=== PATIENT | male | born 1990 ===

== ENCOUNTER 2020-08-21 12:42 | Outpatient (REF) | payer OTHER, SELFPAY | END 2020-08-21 12:43 | disposition home or self-care (01) | LOC: HO.WFDLDS 12:42 | PROVIDERS: Visit Provider Internal Medicine | DX: Z20.828 Contact with and (suspected) exposure to other viral communicable diseases (principal) | CPT/HCPCS: 87635 ==

== ENCOUNTER 2020-08-24 08:55 | Outpatient (REF) | payer OTHER, SELFPAY | END 2020-08-24 08:56 | disposition home or self-care (01) | LOC: HO.LAB 08:55 | PROVIDERS: Visit Provider Nurse Practitioner Family | DX: Z20.828 Contact with and (suspected) exposure to other viral communicable diseases (principal) | CPT/HCPCS: 87071; 87635; 87880 ==

== ENCOUNTER 2020-10-18 10:51 | Outpatient (REF) | payer OTHER, SELFPAY | END 2020-10-18 10:52 | disposition home or self-care (01) | LOC: HO.WFDLDS 10:51 | PROVIDERS: Nurse Practitioner Family; Visit Provider Internal Medicine | DX: Z20.828 Contact with and (suspected) exposure to other viral communicable diseases (principal) | CPT/HCPCS: U0003 ==

== ENCOUNTER 2021-02-07 09:30 | Outpatient (REF) | payer OTHER, SELFPAY ==
--- NOTE | ~2021-02-07 | XR_ITS ---
EXAMINATION: XR FOOT, RIGHT CLINICAL INFORMATION: Right foot injury with pain COMPARISON: None TECHNIQUE: AP, lateral, and oblique views of the right foot. FINDINGS: There is a nondisplaced fracture seen involving the first proximal phalanx without dislocation. The fracture line may extend into the first interphalangeal joint space. Some dorsal soft tissue swelling is seen. XR/XR foot RT min 3V IMPRESSION: Nondisplaced fracture first proximal phalanx.
== END 2021-02-07 09:31 | disposition home or self-care (01) ==
LOC: HO.HMGCX 09:30
PROVIDERS: Visit Provider Nurse Practitioner Family
DX: S99.921A Unspecified injury of right foot, initial encounter (principal)
CPT/HCPCS: 73630

== ENCOUNTER 2021-02-22 07:17 | Outpatient (REF) | payer OTHER, SELFPAY ==
--- NOTE | ~2021-02-22 | XR_ITS ---
EXAMINATION: XR FOOT, RIGHT CLINICAL INFORMATION: S99.929A - Unspecified injury of unspecified foot, initia... COMPARISON: 02/07/2021 TECHNIQUE: AP, lateral, and oblique views of the right foot. FINDINGS: Again seen is a nondisplaced oblique fracture of the great toe proximal phalanx, likely extending into the IP joint. Subtle callus formation present at the medial cortex. Alignment is unchanged compared to prior. No new fractures are identified. Joint spaces are well-preserved. Bone mineralization is normal. Mild soft tissue swelling is improved. XR/XR foot RT min 3V IMPRESSION: Unchanged alignment of the nondisplaced great toe proximal phalangeal shaft fracture. Subtle callus formation suggests early changes of healing.
== END 2021-02-22 07:18 | disposition home or self-care (01) ==
LOC: HO.HOSX 07:17
PROVIDERS: Visit Provider Physician Assistant
DX: S92.919A Unspecified fracture of unspecified toe(s), initial encounter for closed fracture (principal); Y93.01 Activity, walking, marching and hiking; Y92.828 Other wilderness area as the place of occurrence of the external cause; Y99.9 Unspecified external cause status
CPT/HCPCS: 73630

== ENCOUNTER → 2022-12-30 13:38 | Outpatient (BNVA) | payer OTHER, SELFPAY | PROVIDERS: PCP Nurse Practitioner Family; Visit Provider Surgery | DX: L73.2 Hidradenitis suppurativa (principal) | CPT/HCPCS: 99202 ==

== ENCOUNTER 2023-01-24 09:00 | Day surgery (SDC) | payer OTHER, SELFPAY ==
[2023-01-17 19:32] VITALS: BMI 29.0
--- NOTE | 2023-01-23 09:42 | P.CONAN_ITS ---
Documented by User: Prisca Diaz NP 01/23/23 09:44 HPI - Anesthesia Eval Consult details Narrative: 32yo M for Right Excision Hidradenitis Thigh PMFSH Active Problems Active Problems: All Active Problems (Updated 12/30/22 @ 14:04 by Hudson Barnett MD) Hidradenitis suppurativa (Acute) Scalp lesion (Acute) Finger pain, right (Acute) Abscess (Acute) Physical exam (Acute) Puncture wound of right foot (Acute) Upper respiratory tract infection (Acute) Otitis externa (Acute) Fracture, toe (Acute) Injury of great toe (Acute) Nasal congestion (Acute) Otitis media (Acute) Blepharitis (Acute) Headache (Acute) Exposure to COVID-19 virus (Acute) Sorethroat (Acute) Past Medical History Medical History (Updated 12/30/22 @ 14:04 by Hudson Barnett MD) Hidradenitis suppurativa Family History Family History Paternal Aunt Skin cancer Paternal Uncle Skin cancer Social History Social History Housing: House Are you a primary urgent care physician assistant to a significant other at home: No Do you presently have visiting nurse or other home services: No Alcohol intake: current Alcohol intake frequency: does not drink Patient Tobacco Use Status: Former Tobacco user Tobacco use type: Cigarette Smoked in Last 30 Days: No e-Cigarette/Vaping Use: Never Used Use of substances other than those prescribed or required for medical reasons: No Have you been hit, kicked, punched, or otherwise hurt by someone within the past year? If so, by whom?: No Advance Directives: No Advance Directives Information Provided: Yes Recently lost weight without trying: No Eating poorly because of decreased appetite: No Nutrition Risks: No Nutritional Risk Poor oral hygiene: No service: No Current occupational status: employed Current occupation: Marketing. Cognitive needs: No Hearing needs: No Vision needs: No Meds Allergies Allergy/AdvReac Type Severity Reaction Status Date / Time No Known Allergies Allergy Verified 12/30/22 13:50 Home Medications Medication Instructions Recorded Confirmed Last Taken Type ibuprofen 200 mg capsule 600 mg PO Q6H 07/25/22 12/30/22 Unknown History ibuprofen 200 mg capsule 400 mg PO Q6H 09/09/22 12/30/22 Unknown History Exam Exam Date and Time: January 23, 2023 0942 Height,Weight and Vital Signs: Height 5 ft 7 in Weight 83.915 kg Assessment and Plan Assessment Anesthesia Assessment: Chart Reviewed Documented by User: Sergey Johnston MD 01/24/23 11:06 [facility] Past Medical History Medical History (Updated 12/30/22 @ 14:04 by Hudson Barnett MD) Hidradenitis suppurativa Family History Family History Paternal Aunt Skin cancer Paternal Uncle Skin cancer Family history of problems with anesthesia: No Surgical History History of Problems with Anesthesia: No Social History Social History Housing: House Are you a primary urgent care physician assistant to a significant other at home: No Do you presently have visiting nurse or other home services: No Alcohol intake: current Alcohol intake frequency: does not drink Patient Tobacco Use Status: Former Tobacco user Tobacco use type: Cigarette Smoked in Last 30 Days: No e-Cigarette/Vaping Use: Never Used Use of substances other than those prescribed or required for medical reasons: No Have you been hit, kicked, punched, or otherwise hurt by someone within the past year? If so, by whom?: No Advance Directives: No Advance Directives Information Provided: Yes Recently lost weight without trying: No Eating poorly because of decreased appetite: No Nutrition Risks: No Nutritional Risk Poor oral hygiene: No service: No Current occupational status: employed Current occupation: Marketing. Cognitive needs: No Hearing needs: No Vision needs: No Meds Allergies Allergy/AdvReac Type Severity Reaction Status Date / Time No Known Allergies Allergy Verified 12/30/22 13:50 Home Medications Medication Instructions Recorded Confirmed Last Taken Type ibuprofen 200 mg capsule 600 mg PO Q6H 07/25/22 12/30/22 Unknown History ibuprofen 200 mg capsule 400 mg PO Q6H 09/09/22 12/30/22 Unknown History Exam Airway Mallampati Class: II TM Dist: >3cm Neck ROM: Full Assessment and Plan Assessment Anesthesia Assessment: Anesthesia Plan Discussed Final Anesthetic Review Family History of Problems with Anesthesia: No History of Problems with Anesthesia: No NPO: Yes ASA Class: II Final Preanesthetic Review: No Changes in Pt Med Stat, Meds/Allgs Chart Reviewed, Consent Obtained/Reviewed and Anes Risks/Benef Reviewed Patient Risk: Low Procedure Risk: Low Anesthetic Plan Anesthetic Plan: GA Disposition: Standard PACU
[2023-01-24 09:32] VITALS: BP 134/83; PULSE 62; RESP 16; TEMP 36.3; O2SAT 99
[2023-01-24] MEDS: Lactated Ringers 1,000 ML 100 ML IVCONT (09:47)
--- NOTE | 2023-01-24 11:22 | MHC.SHP ---
Pre-Procedural Eval Section A Date of Service: 01/24/23 Section B Chief Complaint: Hidradenitis suppurativa Allergies: Allergies Allergy/AdvReac Type Severity Reaction Status Date / Time No Known Allergies Allergy Verified 12/30/22 13:50 Plan I have reviewed the history and physical and performed a pertinent physical examination on my patient. No changes have occurred unless specified. Time Spent With Patient Time: Total time managing care of this patient today ____ minutes.
--- NOTE | 2023-01-24 12:23 | P.OP_ITS ---
Operative Note Operative Note Date of Service: 01/24/23 Narrative: Preop diagnosis: Hidradenitis suppurativa, right medial thigh Postop diagnosis: The same Procedure: Excision of hidradenitis suppurativa, right medial thigh surgeon: Hudson Barnett MD hospital medical assistant: ANNETTE Jung The patient is a 32-year-old male with on wide area of induration, recurrent drainage and tenderness on the right medial thigh. This was suggestive of hidradenitis suppurativa. He understood the technique of excision under anesthesia. He was aware of the risks, benefits, and alternatives. He was brought to the operating room. He was placed supine with the right leg in an abducted position under general anesthesia via laryngeal mask airway. The area of induration was noted in the medial thigh on the right. this area was prepped and draped. Lidocaine 1% was used for local anesthesia. I made an elliptical incision around this area using blade 15. And this was carried down through the full-thickness of the skin and subcutaneous fat with electrocautery. I excised all indurated areas to ensure that we were remove all skin and subcutaneous tissue. The area of excision was about 5.5 cm long and 4 cm wide . Ensured hemostasis with electrocautery. I then reapposed deep subcutaneous layer with Dexon 3-0 interrupted sutures. Skin closure was achieved with nylon 3-0 simple interrupted sutures. Dressings were applied. The procedure was completed. The area was infiltrated with Marcaine 0.5% for postop JANET The patient tolerated the procedure well. There were no immediate complications. Initial and final counts of sponges and instruments were correct. Estimated blood loss about 20 cc The patient was extubated without difficulty and transferred to the recovery room with stable vital signs.
[2023-01-24 12:50] VITALS: BP 131/59; PULSE 65; RESP 16; TEMP 36.2; O2SAT 98
[2023-01-24 12:55] VITALS: BP 132/63; PULSE 62; RESP 14; O2SAT 98
[2023-01-24 13:00] VITALS: BP 150/75; PULSE 77; RESP 13; O2SAT 98
[2023-01-24 13:05] VITALS: BP 144/84; PULSE 78; RESP 16; O2SAT 97
[2023-01-24 13:20] VITALS: BP 148/84; PULSE 65; RESP 14; TEMP 36.6; O2SAT 98
== END 2023-01-24 13:45 | disposition home or self-care (01) ==
PROVIDERS: PCP Nurse Practitioner Family; Visit Provider Surgery
PROC: (CPT 11462; principal; 2023-01-24 11:00)
DX: L73.2 Hidradenitis suppurativa (principal); Z79.1 Long term (current) use of non-steroidal anti-inflammatories (NSAID); Z87.891 Personal history of nicotine dependence
CPT/HCPCS: 11462; 88304; 88305; J0131; J0690; J2795; J3010

== ENCOUNTER → 2023-02-06 15:03 | Outpatient (BNVA) | payer OTHER, SELFPAY | PROVIDERS: PCP Nurse Practitioner Family; Visit Provider Surgery | DX: L73.2 Hidradenitis suppurativa (principal) | CPT/HCPCS: 99212 ==

== ENCOUNTER 2023-12-08 13:49 | Outpatient (AMB) | payer OTHER, SELFPAY ==
[2023-12-08 13:56] VITALS: BP 160/92; PULSE 76; O2SAT 98; BMI 31.5
--- NOTE | 2023-12-08 13:56 | A.OFFPC_ITS ---
Vital Signs 12/08/23 13:56 12/08/23 14:28 Height 5 ft 7 in Weight 201 lb BMI 31.5 BP 160/92 H 148/90 H Blood Pressure Location Rt brachial Rt brachial Position Sitting Sitting Pulse 76 Pulse Source Pulse Oximeter Pulse Oximetry (%) 98 Oxygen Delivery Method Room Air Intake Visit Reasons: phy Intake Note: Pt is here for his Annual PE Allergies No Known Allergies Allergy (Verified 12/08/23 14:00) Tobacco use date assessed: 12/08/23 Dental Screening Dental Screen Date: 12/08/23 Did you have a dental visit in the last 12 months?: No Did you have a dental problem in the last 6 months where you did not have access to dental care?: No Was dental information given to patient?: Patient has dentist HPI phy HPI Details Pt is here for a PE. Will order labs. Pt's blood pressure is elevated today. Will start losartan 25mg. Will have pt monitor his blood pressure at home and drop off readings. Denies chest pain, shortness of breath, headache, dizziness, and blurred vision. Pt believes he may have ADD/ADHD. He also reports increased stress. Pt would like to see a psychiatrist. He is also interested in seeing a therapist. Will have team speak with pt. [facility] Medical History Hidradenitis suppurativa (01/24/23) Family History Paternal Aunt Skin cancer Paternal Uncle Skin cancer Social History Housing: House Are you a primary healthcare administrative assistant to a significant other at home: No Do you presently have visiting nurse or other home services: No Alcohol intake: current Alcohol intake frequency: does not drink Patient Tobacco Use Status: Current someday Tobacco user Tobacco use type: Cigarette Cigarettes Per Day: 1 e-Cigarette/Vaping Use: Never Used Second Hand Smoke Exposure: No service: No Current occupational status: employed Current occupation: Marketing. Cognitive needs: No Hearing needs: No Vision needs: No Questionnaire PHQ-9 Over the last 2 weeks, how often have you been bothered by any of the following problems? 1. Little interest or pleasure in doing things: several days 2. Feeling down, depressed, or hopeless: not at all 3. Trouble falling or staying asleep, or sleeping too much: not at all 4. Feeling tired or having little energy: not at all 5. Poor appetite or overeating: not at all 6. Feeling bad about yourself - or that you are a failure or have let yourself or your family down: several days 7. Trouble concentrating on things, such as reading the newspaper or watching television: nearly every day 8. Moving or speaking so slowly that other people could have noticed. Or the opposite - being so fidgety or restless that you have been moving around a lot more than usual: several days 9. Thoughts that you would be better off or of hurting yourself in some way: not at all Total score: 6 Depression Screening Interpretation: Negative Depression Screening Done: Yes 93047 - PHQ-9 Billing: Yes Source: Developed by Drs. Francisco Saldana, Angela Woods, Eliud Oquendo and colleagues, with an educational pierce from [employer]. Thrive Questionnaire Date Thrive assessed: 12/08/23 I am a: Patient What is your living situation today?: I have a steady place to live Within the past 12 months, did the food you bought not last and you didn't have the money to get more?: Never true Within the past 12 months, did you worry whether your food would run out before you got money to buy more?: Never true Do you have trouble paying for medicines?: No Do you have trouble getting transportation to medical appointments?: No Do you have trouble paying your heating and electricity bill?: Yes Do you have trouble taking care of your child, family member or friend?: No Do you have trouble with day-to-day activities such as bathing, preparing meals, shopping, managing finances, etc.?: No Are you currently unemployed and looking for a job?: No Are you interested in more education?: Yes THRIVE Score: 1 AUDIT C Alcohol Use Questionnaire (AUDIT-C) 1. How often do you have a drink containing alcohol?: Monthly or less 2. How many drinks containing alcohol do you have on a typical day when you are drinking?: 1 or 2 3. How often do you have six or more drinks on one occasion?: Never Total Score: 1 JOSE G-7 AMB Questionnaire JOSE G-7 Date JOSE G - 7 assessed: 12/08/23 Feeling nervous, anxious, or on edge: 1 = Several days Not being able to stop or control worryin = Not at all Worrying too much about different things: 1 = Several days Trouble relaxin = More than half the days Being so restless that it is hard to sit still: 2 = More than half the days Becoming easily annoyed or irritable: 1 = Several days Feeling afraid as if something awful might happen: 1 = Several days Total JOSE G-7 score (0-4 normal; 5-9 mild; 10-14 moderate; 15-21 severe): 8 Source: Developed by Drs. Francisco Saldana, Angela oWods, Eliud Oquendo and colleagues, with an educational pierce from [employer]. JOSE G-7 Assessment Billing JOSE G-7 Assessment Tool: JOSE G-7 Assessment 13949 Review of Systems Const Denies chills and Denies fever(s) Eyes Denies blurry vision ENT Denies vertigo, Denies dizziness and Denies sore throat Card Denies chest pain at rest, Denies chest pain with activity, Denies diaphoresis, Denies dyspnea and Denies dyspnea on exertion Resp Denies cough, Denies dyspnea, Denies dyspnea on exertion and Denies wheezing GI Denies abdominal pain, Denies melena, Denies hematochezia, Denies constipation, Denies diarrhea and Denies loose stools Denies hematuria Musc Denies numbness and Denies tingling Skin/Breast Denies lesions Neuro Denies vertigo, Denies dizziness, Denies numbness and Denies tingling Psych Denies anxiety, Denies depression, Denies homicidal ideation, Denies suicidal ideation and Denies other (substance abuse) Aller/Immun Denies wheezing Physical exam (Primary Care) Vital Signs: Last Vital Signs Pulse 76 12/08/23 13:56 BP 148/90 H 12/08/23 14:28 Pulse Ox 98 12/08/23 13:56 Oxygen Delivery Method Room Air 12/08/23 13:56 BMI result Body Mass Index 31.5 Tobacco/Smoking Status: Tobacco use Status Tobacco use date assessed 12/08/23 12/08/23 14:03 Patient Tobacco Use Status Current someday Tobacco 12/08/23 14:03 Tobacco use type Cigarette 12/08/23 13:56 e-Cigarette/Vaping Use Never Used 12/08/23 13:56 PHQ-9: PHQ-9 Score PHQ-9: Total score 6 12/08/23 14:28 Depression Screening Interpretation: Negative Thrive Assessment: Date of Thrive Assessment Date Thrive assessed 12/08/23 12/08/23 14:17 Const General: cooperative Nutritional Appearance: obese Orientation/consciousness: patient oriented x3 HENMT Head: Yes normal to inspection, Yes normocephalic and Yes atraumatic Ears: TM's normal bilaterally Eyes General: appearance normal, both eyes and all related structures Alignment and Position: alignment normal and position normal Neck Neck: Yes normal visual inspection and Yes no lymphadenopathy Thyroid: Thyroid normal Resp Effort & Inspection: normal respiratory effort Auscultation: clear to auscultation bilaterally Cardio Rate: regular rate Rhythm: regular rhythm Heart sounds: S1 normal heart sound present, S2 normal heart sound present and no murmurs GI Palpation (GI): Soft to palpation and nontender Auscultation: normal bowel sounds Male General Exam: Yes normal external exam Penis: normal penis Scrotum: scrotum normal, testes descended bilaterally and no inguinal hernias Testes: no testicular mass Skin Rashes: no rashes Neuro General: patient oriented x3, moves all extremities, no focal motor deficits and deep tendon reflexes 2+ bilaterally Romberg Test: Negative Psych Appearance: grossly normal Mental Status: mental status grossly normal Speech and movement: Normal speech and movement present Affect: normal affect Attitude: cooperative Thought process: Normal thought process present Thought content: Normal thought content present Insight: Good insight present (Psych) Judgement: Good judgement present (Psych) Assessment and Plan Assessment & Plan (1) Physical exam: Code(s): Z00.00 - Encounter for general adult medical examination without abnormal findings (2) HTN (hypertension): Code(s): I10 - Essential (primary) hypertension Plan: starting losartan, pt will drop off BPs in the near future, knows to get labs drawn after starting med Orders: Orders Comprehensive [place]. Panel Fast Today I10 - Essential (primary) hypertension, Z00.00 - Encounter for general adult medical examination without abnormal findings Lipid Panel Today I10 - Essential (primary) hypertension, Z00.00 - Encounter for general adult medical examination without abnormal findings Complete Blood Count Auto Diff Today I10 - Essential (primary) hypertension, Z00.00 - Encounter for general adult medical examination without abnormal findings TSH reflex Free T4 Today I10 - Essential (primary) hypertension, Z00.00 - Encounter for general adult medical examination without abnormal findings UA CC w/rflx Micro + Cult Today I10 - Essential (primary) hypertension, Z00.00 - Encounter for general adult medical examination without abnormal findings Medications: New losartan 25 mg PO DAILY 90 tabs 0RF 90 days Coding Level of Care Code Est Pt Prev Care 18-39y(26629) Diagnoses Physical exam Z00.00 HTN (hypertension) I10 Additional Codes JOSE G-7 Assessment Billing - JOSE G-7 Assessment Tool: JOSE G-7 Assessment [id number] ([id number])
[2023-12-08 14:28] VITALS: BP 148/90
== END 2023-12-08 15:36 | disposition home or self-care (01) ==
PROVIDERS: Visit Provider Nurse Practitioner Family
DX: Z00.00 Encounter for general adult medical examination without abnormal findings (principal); I10 Essential (primary) hypertension
CPT/HCPCS: 99395

== ENCOUNTER 2024-03-15 15:25 | Outpatient (AMB) | payer OTHER, SELFPAY ==
[2024-03-15 15:33] VITALS: BP 148/86; PULSE 87; O2SAT 98; BMI 30.6
--- NOTE | 2024-03-15 15:33 | MHC.PC.OV ---
Vital Signs 03/15/24 15:33 Height 5 ft 7 in Weight 195 lb 2 oz BMI 30.6 BP 148/86 H Blood Pressure Location Rt brachial Position Sitting Pulse 87 Pulse Source Pulse Oximeter Pulse Oximetry (%) 98 Oxygen Delivery Method Room Air Intake Visit Reasons: 3 Month follow up Allergies No Known Allergies Allergy (Verified 03/15/24 15:34) Medication List - Last Reconciled 03/15/24 by AKILAH Tipton atomoxetine 40 mg PO DAILY hydrochlorothiazide 12.5 mg PO DAILY losartan 25 mg PO DAILY 90 days Tobacco use date assessed: 03/15/24 Dental Screening Dental Screen Date: 03/15/24 Did you have a dental visit in the last 12 months?: Yes Did you have a dental problem in the last 6 months where you did not have access to dental care?: No Was dental information given to patient?: Patient has dentist HPI 3 Month follow up HPI Details HTN: Blood pressure is managed with losartan 25mg. Blood pressure is elevated today. Pt reports that it is in the 130s/90s at home. He reports starting his losartan approximately 1.5 weeks ago. Will add hydrochlorothiazide 12.5mg. Denies chest pain, shortness of breath, headache, dizziness, and blurred vision. Pt c/o constipation. He reports anal discomfort after a constipated BM, with intermittent bleeding. Spoke to him at extent about hemorrhoids and fissures, importance of diet, and medications. Recommended stool softener and miralax daily. Encouraged pt to increase fiber and water intake. Will cont to monitor [facility] Medical History Hidradenitis suppurativa (01/24/23) Family History Paternal Aunt Skin cancer Paternal Uncle Skin cancer Social History Housing: House Are you a primary progressive care unit registered nurse to a significant other at home: No Do you presently have visiting nurse or other home services: No Alcohol intake: current Alcohol intake frequency: does not drink Patient Tobacco Use Status: Current someday Tobacco user Tobacco use type: Cigarette Cigarettes Per Day: 1 e-Cigarette/Vaping Use: Never Used Second Hand Smoke Exposure: No service: No Current occupational status: employed Current occupation: Marketing. Cognitive needs: No Hearing needs: No Vision needs: No Questionnaire Thrive Questionnaire Date Thrive assessed: 12/08/23 AUDIT C Alcohol Use Questionnaire (AUDIT-C) 1. How often do you have a drink containing alcohol?: Monthly or less 2. How many drinks containing alcohol do you have on a typical day when you are drinking?: 1 or 2 3. How often do you have six or more drinks on one occasion?: Never Total Score: 1 Score Reviewed/Action Taken: Yes JOSE G-7 AMB Questionnaire JOSE G-7 Date JOSE G - 7 assessed: 12/08/23 Source: Developed by Drs. Francisco Saldana, Angela Woods, Eliud Oquendo and colleagues, with an educational pierce from [employer]. Review of Systems Const Reports as per HPI Physical exam (Primary Care) Vital Signs: Last Vital Signs Pulse 87 03/15/24 15:33 BP 148/86 H 03/15/24 15:33 Pulse Ox 98 03/15/24 15:33 Oxygen Delivery Method Room Air 03/15/24 15:33 BMI result Body Mass Index 30.6 Tobacco/Smoking Status: Tobacco use Status Tobacco use date assessed 03/15/24 03/15/24 15:37 Patient Tobacco Use Status Current someday Tobacco 03/15/24 15:37 Tobacco use type Cigarette 03/15/24 15:37 e-Cigarette/Vaping Use Never Used 03/15/24 15:37 Thrive Assessment: Date of Thrive Assessment Date Thrive assessed 12/08/23 03/15/24 15:37 Const General: cooperative Orientation/consciousness: patient oriented x3 Resp Effort & Inspection: normal respiratory effort Auscultation: clear to auscultation bilaterally Cardio Rate: regular rate Rhythm: regular rhythm Heart sounds: S1 normal heart sound present and S2 normal heart sound present GI Other: rectal exam: no external hemorrhoids, no masses or lesions, prostate palpable Neuro General: patient oriented x3 Psych Appearance: grossly normal Mental Status: mental status grossly normal Speech and movement: Normal speech and movement present Affect: normal affect Attitude: cooperative Thought process: Normal thought process present Thought content: Normal thought content present Insight: Good insight present (Psych) Judgement: Good judgement present (Psych) Assessment and Plan Assessment & Plan (1) HTN (hypertension): Code(s): I10 - Essential (primary) hypertension Plan: adding HCTZ (2) Constipation: Code(s): K59.00 - Constipation, unspecified Plan: adding miralax, stool softener, water, and fiber Plan The patient agreed to the use of a remote medical coder for this encounter. Scribed for AKILAH Truong by Bertha Diaz remote medical coder, on 03/15/2024 at 15:45 EST. Medications: New hydrochlorothiazide 12.5 mg PO DAILY 30 tabs 3RF Coding Level of Care Code Est Pt Level 3 (22468) Diagnoses HTN (hypertension) I10 Constipation K59.00
== END 2024-03-15 16:37 | disposition home or self-care (01) ==
PROVIDERS: PCP Nurse Practitioner Family; Visit Provider Nurse Practitioner Family
DX: I10 Essential (primary) hypertension (principal); K59.00 Constipation, unspecified
CPT/HCPCS: 99213

== ENCOUNTER 2024-03-20 06:37 | Outpatient (REF) | payer OTHER, SELFPAY ==
[2024-03-20 11:27] LABS: Basophils Absolute Auto 0.1 X10*3/uL (0.0-0.2); Basophils Percent Auto 0.7 % (0-2); Eosinophils Absolute Auto 0.3 X10*3/uL (0.0-0.4); Eosinophils Percent Auto 3.9 % (0-4); Hemoglobin 14.7 g/dl (14.0-18.0); Imm Gran Abs Auto 0.01 X10*3/uL (0.00-0.03); Imm Gran Pct Auto 0.1 % (0.0-0.4); Lymphocytes Percent Auto 26.6 % (20-40); MANUAL DIFF FLAG NO; Mean Corpuscular HGB Conc 33.4 g/dl (31.0-36.0); Mean Corpuscular Hemoglobin 28.8 pg (27.0-33.0); Mean Corpuscular Volume 86.1 fL (80.0-98.0); Mean Platelet Volume 11.1 fL (9.4-12.4); Monocytes Absolute Auto 0.8 X10*3/uL (0.1-1.2); Neutrophils Absolute Auto 4.4 x10*3/uL (2.0-8.3); Neutrophils Percent Auto 57.7 % (45-73); Platelet Count 238 X10*3/uL (160-400); Red Blood Count 5.11 X10*6/uL (4.60-5.80); Red Cell Distribution Width 12.5 % (11.0-16.0); White Blood Count 7.5 X10*3/uL (4.8-10.8)
[2024-03-20 11:40] LABS: Appearance Urine Clear; Color Urine Yellow; Glucose Urine UA Negative (Negative); Leukocyte Esterase Urine Negative (Negative); Nitrite Urine Negative (Negative); Specific Gravity - Urine 1.015 (1.005-1.025); Urine Blood Negative (Negative); Urine Ketones Negative (Negative); Urine Protein Negative (Neg-Trace)
[2024-03-20 12:17] LABS: Alanine Aminotransferase 15 U/L (0-40); Albumin Level 4.7 g/dL (3.5-5.0); Alkaline Phosphatase 65 U/L (39-117); Anion Gap 15 (12-20); Aspartate Amino Transferase 20 U/L (5-37); Bilirubin Total 0.5 mg/dL (0.0-1.0); Blood Urea Nitrogen 16 mg/dL (9-16); Calcium 9.6 mg/dL (8.4-10.2); Carbon Dioxide 25 mmol/L (22-29); Chloride 102 mmol/L (96-108); Cholesterol 175 mg/dL (<200); Estimated Glomerular Filt Rate > 60; Glucose Fasting 99 mg/dL (60-99); HDL Cholesterol 40 mg/dL (>40); LDL Cholesterol Calculated 113 mg/dL (<100); Potassium 3.8 mmol/L (3.3-5.1); Sodium 138 mmol/L (135-145); TSH reflex Free T4 1.61 uIU/mL (0.32-4.0); Triglycerides 114 mg/dL (<150)
== END 2024-03-20 06:38 | disposition home or self-care (01) ==
LOC: HO.HMGCLDS 06:37
PROVIDERS: PCP Nurse Practitioner Family; Visit Provider Nurse Practitioner Family
DX: Z00.00 Encounter for general adult medical examination without abnormal findings (principal); I10 Essential (primary) hypertension
CPT/HCPCS: 36415; 80053; 80061; 81003; 84443; 85025

== ENCOUNTER 2024-06-29 10:04 | Outpatient (AMB) | payer OTHER, SELFPAY ==
[2024-06-29 10:08] VITALS: BP 138/80; PULSE 55; O2SAT 98; BMI 29.9
--- NOTE | 2024-06-29 10:08 | A.OFFPC_ITS ---
Vital Signs 06/29/24 10:08 Height 5 ft 7 in Weight 191 lb BMI 29.9 BP 138/80 Blood Pressure Location Lt brachial Position Sitting Pulse 55 Pulse Source Pulse Oximeter Pulse Oximetry (%) 98 Oxygen Delivery Method Room Air Intake Visit Reasons: 3 Month follow up Intake Note: pt is here for 3 month follow up Soda Clerk Required: No Accompanied by: Self / Same As Patient Allergies No Known Allergies Allergy (Verified 06/29/24 10:10) Medication List - Last Reconciled 06/29/24 by AKILAH Tipton losartan-hydrochlorothiazide 50-12.5 mg 1 tab PO DAILY Tobacco use date assessed: 06/29/24 Dental Screening Dental Screen Date: 03/15/24 Did you have a dental visit in the last 12 months?: Yes Did you have a dental problem in the last 6 months where you did not have access to dental care?: No Was dental information given to patient?: Patient has dentist HPI 3 Month follow up HPI Details HTN: Pt reports that his blood pressure is elevated at home. He is currently taking hydrochlorothiazide 12.5mg and losartan 25mg. Will increase losartan to 50mg (switching to combo med). Denies shortness of breath, headache, dizziness, and blurred vision. Pt reports a recent episode of chest pain. Will do an EKG in office. denies any radicular symptoms or sustained discomfort [facility] Medical History Hidradenitis suppurativa (01/24/23) Family History Paternal Aunt Skin cancer Paternal Uncle Skin cancer Social History Housing: House Are you a primary point of care technician to a significant other at home: No Do you presently have visiting nurse or other home services: No Alcohol intake: current Alcohol intake frequency: does not drink Patient Tobacco Use Status: Current someday Tobacco user Tobacco use type: Cigarette Cigarettes Per Day: 1 e-Cigarette/Vaping Use: Never Used Second Hand Smoke Exposure: No service: No Current occupational status: employed Current occupation: Marketing. Cognitive needs: No Hearing needs: No Vision needs: No Questionnaire PHQ-9 Over the last 2 weeks, how often have you been bothered by any of the following problems? 1. Little interest or pleasure in doing things: not at all 2. Feeling down, depressed, or hopeless: not at all 3. Trouble falling or staying asleep, or sleeping too much: several days 4. Feeling tired or having little energy: several days 5. Poor appetite or overeating: several days 6. Feeling bad about yourself - or that you are a failure or have let yourself or your family down: several days 7. Trouble concentrating on things, such as reading the newspaper or watching television: not at all 8. Moving or speaking so slowly that other people could have noticed. Or the opposite - being so fidgety or restless that you have been moving around a lot more than usual: not at all 9. Thoughts that you would be better off or of hurting yourself in some way: not at all Total score: 4 Depression Screening Interpretation: Negative Depression Screening Done: Yes 90446 - PHQ-9 Billing: Yes Source: Developed by Drs. Francisco Saldana, Angela Woods, Eliud Oquendo and colleagues, with an educational pierce from [employer] ([email or web address]). Thrive Questionnaire Date Thrive assessed: 06/29/24 I am a: Patient What is your living situation today?: I have a steady place to live Within the past 12 months, did the food you bought not last and you didn't have the money to get more?: Never true Within the past 12 months, did you worry whether your food would run out before you got money to buy more?: I choose not to answer this question Do you have trouble paying for medicines?: I choose not to answer this question Do you have trouble getting transportation to medical appointments?: No Do you have trouble paying your heating and electricity bill?: Yes Do you have trouble taking care of your child, family member or friend?: No Do you have trouble with day-to-day activities such as bathing, preparing meals, shopping, managing finances, etc.?: No Are you currently unemployed and looking for a job?: No Are you interested in more education?: No Please select the resources that you would like help with: None Currently or been in a relationship where the following occur: No concerns reported THRIVE Score: 1 AUDIT C Alcohol Use Questionnaire (AUDIT-C) 1. How often do you have a drink containing alcohol?: 2-4 times a month 2. How many drinks containing alcohol do you have on a typical day when you are drinking?: 1 or 2 3. How often do you have six or more drinks on one occasion?: Never Total Score: 2 JOSE G-7 AMB Questionnaire JOSE G-7 Date JOSE G - 7 assessed: 06/29/24 Feeling nervous, anxious, or on edge: 1 = Several days Not being able to stop or control worryin = Not at all Worrying too much about different things: 0 = Not at all Trouble relaxin = Several days Being so restless that it is hard to sit still: 1 = Several days Becoming easily annoyed or irritable: 1 = Several days Feeling afraid as if something awful might happen: 0 = Not at all Total JOSE G-7 score (0-4 normal; 5-9 mild; 10-14 moderate; 15-21 severe): 4 Source: Developed by Drs. Francisco Saldana, Angela Woods, Eliud Oquendo and colleagues, with an educational pierce from [employer] ([email or web address]). JOSE G-7 Assessment Billing JOSE G-7 Assessment Tool: JOSE G-7 Assessment 22764 Review of Systems Const Reports as per HPI Physical exam (Primary Care) Vital Signs: Last Vital Signs Pulse 55 06/29/24 10:08 BP 138/80 06/29/24 10:08 Pulse Ox 98 06/29/24 10:08 Oxygen Delivery Method Room Air 06/29/24 10:08 BMI result Body Mass Index 29.9 Tobacco/Smoking Status: Tobacco use Status Tobacco use date assessed 06/29/24 06/29/24 10:14 Patient Tobacco Use Status Current someday Tobacco 06/29/24 10:11 Tobacco use type Cigarette 06/29/24 10:11 e-Cigarette/Vaping Use Never Used 06/29/24 10:11 Depression Screening Interpretation: Negative Thrive Assessment: Date of Thrive Assessment Date Thrive assessed 06/29/24 06/29/24 10:14 Currently or been in a relationship where the following occur: No concerns reported Const General: cooperative Orientation/consciousness: patient oriented x3 Resp Effort & Inspection: normal respiratory effort Auscultation: clear to auscultation bilaterally Cardio Rate: regular rate Rhythm: regular rhythm Heart sounds: S1 normal heart sound present and S2 normal heart sound present Neuro General: patient oriented x3 Extrem Right lower extremity: no edema Left lower extremity: no edema Psych Appearance: grossly normal Mental Status: mental status grossly normal Speech and movement: Normal speech and movement present Affect: normal affect Attitude: cooperative Thought process: Normal thought process present Thought content: Normal thought content present Insight: Good insight present (Psych) Judgement: Good judgement present (Psych) Assessment and Plan Assessment & Plan (1) Chest pain: Code(s): R07.9 - Chest pain, unspecified Plan: EKG done in office (2) HTN (hypertension): Code(s): I10 - Essential (primary) hypertension Plan: Increasing losartan from 25mg to 50mg (switching to combo med, hctz), will cont to monitor Plan The patient agreed to the use of a medical staff credentialing coordinator for this encounter. Scribed for ROSA Truong-KATHLEEN by Bertha Diaz medical staff credentialing coordinator, on 06/29/2024 at 10:35 EST. Orders: Orders AMB EKG-In Office Today R07.9 - Chest pain, unspecified Comprehensive Met. Panel Today I10 - Essential (primary) hypertension, R07.9 - Chest pain, unspecified Medications: New losartan-hydrochlorothiazide 50-12.5 mg 1 tab PO DAILY 90 tabs 0RF Discontinued hydrochlorothiazide Discontinued Reason: Duplicate 12.5 mg PO DAILY 30 tabs 3RF losartan Discontinued Reason: Doctor's Order 25 mg PO DAILY 90 days 90 tabs 0RF Coding Level of Care Code Est Pt Level 3 (69707) Diagnoses Chest pain R07.9 HTN (hypertension) I10 Additional Codes JOSE G-7 Assessment Billing - JOSE G-7 Assessment Tool: JOSE G-7 Assessment 59251 ([id number])
== END 2024-06-29 11:10 | disposition home or self-care (01) ==
PROVIDERS: PCP Nurse Practitioner Family; Visit Provider Nurse Practitioner Family
DX: R07.9 Chest pain, unspecified (principal); I10 Essential (primary) hypertension
CPT/HCPCS: 93000; 99213

== ENCOUNTER 2024-10-19 16:09 | Outpatient (AMB) | payer OTHER, SELFPAY ==
--- NOTE | 2024-10-19 16:15 | A.OFFPC_ITS ---
Vital Signs 10/19/24 16:16 10/19/24 16:46 Height 5 ft 7 in Weight 190 lb BMI 29.8 BP 136/80 128/80 Blood Pressure Location Rt brachial Lt brachial Position Sitting Sitting Pulse 64 Pulse Source Pulse Oximeter Pulse Oximetry (%) 98 Intake Visit Reasons: 4 month follow up Allergies No Known Allergies Allergy (Verified 10/19/24 16:16) Medication List - Last Reconciled 10/19/24 by Keenan Sosa [facility] losartan-hydrochlorothiazide 50-12.5 mg 1 tab PO DAILY Tobacco use date assessed: 06/29/24 Dental Screening Dental Screen Date: 03/15/24 HPI 4 month follow up HPI Details Chief Complaint I am here for hypertension and to discuss treatment options for ADHD. History of Present Illness The patient is a 33-year-old male presenting with essential hypertension and ADHD. The patient has been on a losartan and hydrochlorothiazide combination for hypertension but has not been diligent in monitoring blood pressure at home. Blood pressure readings have fluctuated, with recent clinic measurements showing blood pressure at 128/80 mmHg after initially higher readings. Additionally, the patient discussed a history of ADHD, initially investigated with medication which he found ineffective, leading to discontinuation. The patient mentioned they have not engaged in recent diagnostic evaluations for ADHD, which he was told to do by a psych provider. If +, recommend starting a NONstimulant before any stimulant medication. Swelling in the lower extremities was considered when the patient wore new shoes, but this was not a persistent problem. The patient does not report cardiac or respiratory issues, and no other major health changes or stressors were noted. Social History - The patient is employed, though detail s of current job roles were not specified. - Family status includes being a and father of two. - The patient reports relatively sedenta ry lifestyle with references to sitting for much of the day. - No specific mention of exercise, dieta ry habits, or substance use. Health Maintenance - Recommended regular blood pressure mon itoring at home. - A physical examination is scheduled december. Review of Systems - Cardiovascular: denies any cp, SOB, N/ V, BELLO, dizziness, blurred vision - Neurological: Reports memory issues, d ifficulty focusing, consistent with ADHD. denies any si or hi Physical Exam General: Cooperative, healthy appearing, comfortable, no acute distress and well developed Orientation: Patient oriented x3 Limitations: No limitations Head: Normal to inspection Ears: Hearing grossly normal bilaterally Nose: Normal external nose present Face and sinus: Normal facial exam Eyes: Appearance normal, both eyes and all related structures Neck: Normal visual inspection and Yes full ROM Respiratory: Normal respiratory effort and able to speak in complete sentences. Clear to auscultation bilaterally Cardiovascular: Regular rate and rhythm. Normal S1 and S2 GI: Normal to inspection. Soft to palpation and nontender Skin: No rashes or lesions noted Neuro: Patient oriented x3 Extremities: Normal to inspection, no edema Results Plan - Encourage routine home blood pressure monitoring and reporting through the portal. - Discussed non-stimulant medication opt ions such as Wellbutrin SR for ADHD; awaiting further diagnostic confirmation via online testing. - Will order additional labs for monitor ing hypertension and general health status. - Encouraged continued use of current hy pertension medication. - Advise follow-up in six months for upd ates and medication efficacy review compatible with patient schedule and lifestyle. Patient was informed and verbally consented to the use of an ambient scribe for clinic note documentation during this visit. Discussion Notes During today's visit, we discussed the importance of regularly monitoring blood pressure at home. Emphasis was placed on using the portal for efficient communication of readings. I addressed concerns regarding ADHD management, explaining options beyond stimulants, specifically Wellbutrin SR, and recommended necessary diagnostic steps. We agreed on a strategy to explore this route prior to considering stimulant medications. I confirmed the scheduled December examination and clarified the procedures for lab work completion prior to that appointment. Encouragement was given to maintain regular medication compliance and preparation for subsequent evaluations. Patient Instructions - Monitor and record blood pressure at h ome weekly using a reliable monitor. - Submit blood pressure readings through the portal every few months. - Schedule and complete lab tests as ear ly as possible prior to the December appointment. - Consider having the ADHD diagnostic te st online for medication eligibility. - Maintain adherence to prescribed hyper tension medication. - Attend the scheduled exam in December and bring recorded blood pressure data. [facility] Medical History Hidradenitis suppurativa (01/24/23) Surgical History H/O removal of cyst Family History Paternal Aunt Skin cancer Paternal Uncle Skin cancer Social History Housing: House Are you a primary customer care specialist to a significant other at home: No Do you presently have visiting nurse or other home services: No Alcohol intake: current Alcohol intake frequency: does not drink Patient Tobacco Use Status: Current someday Tobacco user Tobacco use type: Cigarette Cigarettes Per Day: 1 e-Cigarette/Vaping Use: Never Used Second Hand Smoke Exposure: No service: No Current occupational status: employed Current occupation: Marketing. Cognitive needs: No Hearing needs: No Vision needs: No Questionnaire Thrive Questionnaire Date Thrive assessed: 06/29/24 I am a: Patient What is your living situation today?: I have a steady place to live Within the past 12 months, did the food you bought not last and you didn't have the money to get more?: Never true Within the past 12 months, did you worry whether your food would run out before you got money to buy more?: I choose not to answer this question Do you have trouble paying for medicines?: I choose not to answer this question Do you have trouble getting transportation to medical appointments?: No Do you have trouble paying your heating and electricity bill?: Yes Do you have trouble taking care of your child, family member or friend?: No Do you have trouble with day-to-day activities such as bathing, preparing meals, shopping, managing finances, etc.?: No Are you currently unemployed and looking for a job?: No Are you interested in more education?: No Please select the resources that you would like help with: None Currently or been in a relationship where the following occur: No concerns reported THRIVE Score: 1 JOSE G-7 AMB Questionnaire JOSE G-7 Date JOSE G - 7 assessed: 06/29/24 Source: Developed by Drs. Francisco Saldana, Angela Woods, Eliud Oquendo and colleagues, with an educational pierce from [employer]. Physical exam (Primary Care) Vital Signs: Last Vital Signs Pulse 64 10/19/24 16:16 BP 136/80 10/19/24 16:16 Pulse Ox 98 10/19/24 16:16 BMI result Body Mass Index 29.8 Tobacco/Smoking Status: Tobacco use Status Tobacco use date assessed 06/29/24 10/19/24 16:15 Patient Tobacco Use Status Current someday Tobacco 10/19/24 16:15 Tobacco use type Cigarette 10/19/24 16:15 e-Cigarette/Vaping Use Never Used 10/19/24 16:15 Thrive Assessment: Date of Thrive Assessment Date Thrive assessed 06/29/24 10/19/24 16:15 Currently or been in a relationship where the following occur: No concerns reported Coding Level of Care Code Est Pt Level 3 (58370) Diagnoses HTN (hypertension) I10 ADD (attention deficit disorder) F98.8 Assessment & Plan Assessment & Plan (1) HTN (hypertension): Code(s): I10 - Essential (primary) hypertension Category: Medical (2) ADD (attention deficit disorder): Code(s): F98.8 - Other specified behavioral and emotional disorders with onset usually occurring in childhood and adolescence Category: Medical Plan . Orders: Orders TSH reflex Free T4 Today I10 - Essential (primary) hypertension Lipid Panel Today I10 - Essential (primary) hypertension Complete Blood Count Auto Diff Today I10 - Essential (primary) hypertension Comprehensive [place]. Panel Fast Today I10 - Essential (primary) hypertension UA CC w/rflx Micro + Cult Today I10 - Essential (primary) hypertension
[2024-10-19 16:16] VITALS: BP 136/80; PULSE 64; O2SAT 98; BMI 29.8
[2024-10-19 16:46] VITALS: BP 128/80
== END 2024-10-19 16:50 | disposition home or self-care (01) ==
PROVIDERS: PCP Nurse Practitioner Family; Visit Provider Nurse Practitioner Family
DX: I10 Essential (primary) hypertension (principal); F98.8 Other specified behavioral and emotional disorders with onset usually occurring in childhood and adolescence

== ENCOUNTER → 2024-10-19 16:09 | Outpatient (BNVA) | payer OTHER, SELFPAY | PROVIDERS: PCP Nurse Practitioner Family; Visit Provider Nurse Practitioner Family | DX: I10 Essential (primary) hypertension (principal); F98.8 Other specified behavioral and emotional disorders with onset usually occurring in childhood and adolescence | CPT/HCPCS: 99212 ==

== ENCOUNTER 2025-04-20 10:18 | Outpatient (AMB) | payer OTHER, SELFPAY ==
[2025-04-20 10:20] VITALS: BP 130/80; PULSE 67; O2SAT 98; BMI 30.2
--- NOTE | 2025-04-20 10:20 | A.OFFPC_ITS ---
Vital Signs 04/20/25 10:20 Height 5 ft 7 in Weight 193 lb BMI 30.2 BP 130/80 Blood Pressure Location Rt brachial Position Sitting Pulse 67 Pulse Source Pulse Oximeter Pulse Oximetry (%) 98 Oxygen Delivery Method Room Air Intake Visit Reasons: 6 month follow up-SEE OA PCP not listed on ins. Outbound Call Center Representative Required: No Accompanied by: Self / Same As Patient Allergies No Known Allergies Allergy (Verified 04/20/25 10:20) Medication List - Last Reconciled 04/20/25 by AKILAH Tipton losartan-hydrochlorothiazide 50-12.5 mg 1 tab PO DAILY Tobacco use date assessed: 04/20/25 Dental Screening Dental Screen Date: 04/20/25 Did you have a dental visit in the last 12 months?: Yes Did you have a dental problem in the last 6 months where you did not have access to dental care?: No Was dental information given to patient?: Patient has dentist HPI 6 month follow up-SEE OA PCP not listed on ins. HPI Details Chief Complaint The patient reports foot pain and concerns about blood pressure management. History of Present Illness The patient is a 34-year-old male presenting with foot pain and hypertension management. The patient reports stable blood pressure readings at home, ranging from 120 to 130 mmHg systolically. He denies experiencing any chest pain, dyspnea, blurred vision, or headaches. Regarding his foot pain, the patient describes tenderness in the balls of his feet bilaterally, with significant calluses noted, particularly on the plantar aspect of the first metatarsophalangeal joint regions bilaterally. He has attempted callus removal at home, which has provided some relief. He has been advised to obtain better footwear to alleviate symptoms. Social History Health Maintenance Review of Systems - Cardiovascular: Denies chest pain, dys pnea, or syncope. - Neurological: Denies blurred vision or headaches. - Gastrointestinal: Denies nausea or vom iting. Physical Exam General: Cooperative, healthy appearing, comfortable, no acute distress and well developed Orientation: Patient oriented x3 Limitations: No limitations Head: Normal to inspection Ears: Hearing grossly normal bilaterally Nose: Normal external nose present Face and sinus: Normal facial exam Eyes: Appearance normal, both eyes and all related structures Neck: Normal visual inspection and Yes full ROM Respiratory: Normal respiratory effort and able to speak in complete sentences. Clear to auscultation bilaterally Cardiovascular: Regular rate and rhythm. Normal S1 and S2 GI: Normal to inspection. Soft to palpation and nontender Skin: No rashes or lesions noted Neuro: Patient oriented x3 Extremities: Tenderness to the balls of the feet bilaterally. Calluses especially just inferior to the fifth and first toes plantar aspect on the first MTP joint regions bilaterally. Results Plan The patient is advised to continue monitoring his blood pressure at home, ensuring it remains within the target range. For the foot pain, he is recommended to use appropriate footwear to reduce pressure on the calluses and consider professional podiatric care if symptoms persist. encouraged to get labs drawn [facility] Medical History Hidradenitis suppurativa (01/24/23) Surgical History H/O removal of cyst Family History Paternal Aunt Skin cancer Paternal Uncle Skin cancer Social History Housing: House Are you a primary care center manager to a significant other at home: No Do you presently have visiting nurse or other home services: No Alcohol intake: current Alcohol intake frequency: does not drink Patient Tobacco Use Status: Current someday Tobacco user Tobacco use type: Cigarette Cigarettes Per Day: 1 e-Cigarette/Vaping Use: Never Used Second Hand Smoke Exposure: No service: No Current occupational status: employed Current occupation: Marketing. Cognitive needs: No Hearing needs: No Vision needs: No Questionnaire PHQ-9 Over the last 2 weeks, how often have you been bothered by any of the following problems? 1. Little interest or pleasure in doing things: not at all 2. Feeling down, depressed, or hopeless: not at all 3. Trouble falling or staying asleep, or sleeping too much: not at all 4. Feeling tired or having little energy: not at all 5. Poor appetite or overeating: not at all 6. Feeling bad about yourself - or that you are a failure or have let yourself or your family down: not at all 7. Trouble concentrating on things, such as reading the newspaper or watching television: not at all 8. Moving or speaking so slowly that other people could have noticed. Or the opposite - being so fidgety or restless that you have been moving around a lot more than usual: not at all 9. Thoughts that you would be better off or of hurting yourself in some way: not at all Total score: 0 Depression Screening Interpretation: Negative Depression Screening Done: Yes 10833 - PHQ-9 Billing: Yes Source: Developed by Drs. Francisco Saldana, Angela Woods, Eliud Oquendo and colleagues, with an educational pierce from [employer]. Thrive Questionnaire Date Thrive assessed: 04/20/25 I am a: Patient What is your living situation today?: I have a steady place to live Within the past 12 months, did the food you bought not last and you didn't have the money to get more?: Never true Within the past 12 months, did you worry whether your food would run out before you got money to buy more?: Never true Do you have trouble paying for medicines?: I choose not to answer this question Do you have trouble getting transportation to medical appointments?: I choose not to answer this question Do you have trouble paying your heating and electricity bill?: I choose not to answer this question Do you have trouble taking care of your child, family member or friend?: No Do you have trouble with day-to-day activities such as bathing, preparing meals, shopping, managing finances, etc.?: No Are you currently unemployed and looking for a job?: No Are you interested in more education?: I choose not to answer this question Please select the resources that you would like help with: None Currently or been in a relationship where the following occur: No concerns reported THRIVE Score: 0 AUDIT C Alcohol Use Questionnaire (AUDIT-C) 1. How often do you have a drink containing alcohol?: 2-4 times a month 2. How many drinks containing alcohol do you have on a typical day when you are drinking?: 1 or 2 3. How often do you have six or more drinks on one occasion?: Never Total Score: 2 Score Reviewed/Action Taken: Yes JOSE G-7 AMB Questionnaire JOSE G-7 Date JOSE G - 7 assessed: 04/20/25 Feeling nervous, anxious, or on edge: 0 = Not at all Not being able to stop or control worryin = Not at all Worrying too much about different things: 0 = Not at all Trouble relaxin = Not at all Being so restless that it is hard to sit still: 0 = Not at all Becoming easily annoyed or irritable: 0 = Not at all Feeling afraid as if something awful might happen: 0 = Not at all Total JOSE G-7 score (0-4 normal; 5-9 mild; 10-14 moderate; 15-21 severe): 0 Source: Developed by Drs. Francisco Saldana, Angela Woods, Eliud Oquendo and colleagues, with an educational pierce from [employer]. JOSE G-7 Assessment Billing JOSE G-7 Assessment Tool: JOSE G-7 Assessment 86643 Physical exam (Primary Care) Vital Signs: Last Vital Signs Pulse 67 04/20/25 10:20 BP 130/80 04/20/25 10:20 Pulse Ox 98 04/20/25 10:20 Oxygen Delivery Method Room Air 04/20/25 10:20 BMI result Body Mass Index 30.2 Tobacco/Smoking Status: Tobacco use Status Tobacco use date assessed 04/20/25 04/20/25 10:24 Patient Tobacco Use Status Current someday Tobacco 04/20/25 10:24 Tobacco use type Cigarette 04/20/25 10:24 e-Cigarette/Vaping Use Never Used 04/20/25 10:24 PHQ-9: PHQ-9 Score PHQ-9: Total score 0 04/20/25 10:24 Depression Screening Interpretation: Negative Thrive Assessment: Date of Thrive Assessment Date Thrive assessed 04/20/25 04/20/25 10:24 Currently or been in a relationship where the following occur: No concerns reported Coding Level of Care Code Est Pt Level 3 (40799) Diagnoses HTN (hypertension) I10 Foot pain, bilateral M79.671; M79.672 Additional Codes JOSE G-7 Assessment Billing - JOSE G-7 Assessment Tool: JOSE G-7 Assessment 21585 ([id number]) PHQ-9 - 72774 - PHQ-9 Billing: Yes ([id number]) Assessment & Plan Assessment & Plan (1) HTN (hypertension): Code(s): I10 - Essential (primary) hypertension Category: Medical (2) Foot pain, bilateral: Code(s): M79.671 - Pain in right foot; M79.672 - Pain in left foot Category: Medical Plan .
--- OUTSIDE RECORDS SUMMARY | 2025-04-20 11:40 | XMS_ITS | Clinical Summary ---
Author Organization [facility] Address [address] [place] [address] Care Team Providers Care Tableman Name Role Phone Pcp, No Primary Care Provider Social History Tobacco Use Types Packs/Day Years Used Date Smoking Tobacco: Never Assessed Sex and Gender Information Value Date Recorded Sex Assigned at Not on file Legal Sex Male 7:45 AM EST Gender Identity Not on file Sexual Orientation Not on file Plan of Treatment Health Maintenance Due Date Last Done Comments Depression: Screening Annual ly using PHQ-2/9 in Adults 18 yrs or above (or HM Modifier)([facility]) 2009 Hepatitis C Virus Infection in Adolescents and Adults: Screening (or Modifier) ([facility]) 2009 SDOH Screening Reminder: Dayna ually for all adults ([facility]) 2009 Tobacco Smoking Cessation: i n Adults excluding Women: Behavioral and Pharmacotherapy Interventions ([facility]) 2009 DTaP/Tdap/Td Vaccines ([facility]) (1 - Tdap) 2010 COVID-19 Vaccine Screening: Initial Series and Booster Status ([facility]) ( - 2023- season) 2024 Flu Vaccination: Yearly for ages 18mos through 64 years (or Modifier)([facility]) 06/03/2025 Zoster/Shingles Vaccine Seri es Screening: Adults aged 18+ yrs (or HM Modifiers)([facility]) (1 of 2) 2041 Pneumococcal Vaccination Scr eening: Pts 0-19 & 19-49 yrs of age ([facility]) Aged Out No longer eligible based on patient's age to complete this topic Medical Devices Not on file Insurance [facility] Care Teams Tableman Relationship Specialty Start Date End Date Pcp, No PCP - General Family Medicine 11/16/20
== END 2025-04-20 10:49 | disposition home or self-care (01) ==
LOC: HO.HMCC 10:19
PROVIDERS: PCP Nurse Practitioner Family; Visit Provider Nurse Practitioner Family
DX: I10 Essential (primary) hypertension (principal); M79.671 Pain in right foot; M79.672 Pain in left foot

== ENCOUNTER 2025-04-20 10:51 | Outpatient (REF) | payer OTHER, SELFPAY ==
[2025-04-20 13:23] LABS: MANUAL DIFF FLAG NO
[2025-04-20 13:27] LABS: Basophils Absolute Auto 0.1 X10*3/uL (0.0-0.2); Basophils Percent Auto 0.6 % (0-2); Eosinophils Absolute Auto 0.1 X10*3/uL (0.0-0.4); Eosinophils Percent Auto 0.7 % (0-4); Hematocrit 43.8 % (42.0-52.0); Hemoglobin 14.6 g/dl (14.0-18.0); Imm Gran Abs Auto 0.03 X10*3/uL (0.00-0.03); Imm Gran Pct Auto 0.3 % (0.0-0.4); Lymphocytes Absolute Auto 2.7 X10*3/uL (1.2-4.9); Lymphocytes Percent Auto 31.5 % (20-40); Mean Corpuscular HGB Conc 33.3 g/dl (31.0-36.0); Mean Corpuscular Volume 87.1 fL (80.0-98.0); Mean Platelet Volume 10.4 fL (9.4-12.4); Monocytes Absolute Auto 0.6 X10*3/uL (0.1-1.2); Monocytes Percent Auto 7.3 % (2-11); Neutrophils Absolute Auto 5.2 x10*3/uL (2.0-8.3); Neutrophils Percent Auto 59.6 % (45-73); Platelet Count 214 X10*3/uL (160-400); Red Blood Count 5.03 X10*6/uL (4.60-5.80); White Blood Count 8.7 X10*3/uL (4.8-10.8)
[2025-04-20 13:27] LABS: Appearance Urine Clear; Color Urine Yellow; Glucose Urine UA Negative (Negative); Leukocyte Esterase Urine Negative (Negative); Nitrite Urine Negative (Negative); Urine Blood Negative (Negative); Urine Ketones Negative (Negative); Urine Protein Negative (Neg-Trace)
[2025-04-20 13:49] LABS: Alanine Aminotransferase 25 U/L (0-40); Alkaline Phosphatase 60 U/L (39-117); Anion Gap 13 (12-20); Aspartate Amino Transferase 33 U/L (5-37); Bilirubin Total 0.6 mg/dL (0.0-1.0); Blood Urea Nitrogen 13 mg/dL (9-16); Calcium 9.8 mg/dL (8.4-10.2); Carbon Dioxide 27 mmol/L (22-29); Chloride 106 mmol/L (96-108); Cholesterol 234 mg/dL (<200); Estimated Glomerular Filt Rate > 60; Glucose Fasting 93 mg/dL (60-99); Glucose Random 91 mg/dL (60-115); HDL Cholesterol 52 mg/dL (>40); LDL Cholesterol Calculated 162 mg/dL (<100); Potassium 4.5 mmol/L (3.3-5.1); Sodium 141 mmol/L (135-145); Triglycerides 103 mg/dL (<150)
== END 2025-04-20 10:52 | disposition home or self-care (01) ==
LOC: HO.HMGCLDS 10:51
PROVIDERS: PCP Nurse Practitioner Family; Visit Provider Nurse Practitioner Family
DX: I10 Essential (primary) hypertension (principal); R07.9 Chest pain, unspecified; M79.671 Pain in right foot; M79.672 Pain in left foot
CPT/HCPCS: 36415; 80053; 80061; 81003; 84443; 85025; 96127; 99212